=== PATIENT | female | born 1990 | race Caucasian/White ===

== ENCOUNTER 2016-09-20 08:57 | Inpatient (IN) | payer OTHER ==
[~2016-09-20] VITALS: Ht 170.2 cm; Wt 135.6 kg
[2016-09-20 10:29] LABS: Mean Corpuscular Hemoglobin 27.3 pg (27.0-35.0); Mean Corpuscular Volume 82.2 fL (81-100)
[2016-09-20 12:02] LABS: APPEARANCE,URINE HAZY (CLEAR,HAZY); COLOR,URINE YELLOW (YELLOW); PH,URINE 6.5 (5.0-8.0)
[2016-09-20 12:11] LABS: OCCULT BLOOD,URINE NEGATIVE (NEGATIVE); UROBILINOGEN,URINE NORMAL (NORMAL)
[2016-09-20] MEDS ORDERED: Lactated Ringer's 1,000 ML IV PRN (15:32)
[2016-09-20] MEDS ORDERED: Oxytocin 30 Units/500 mL LR 30 UNITS in IV Premix 1 EACH IV PRN (15:35)
[2016-09-20] MEDS ORDERED: Oxytocin 10 Unit/mL Inj IM PRN (15:35)
[2016-09-20] MEDS ORDERED: fentaNYL-PF 50 mCg/mL 2 mL Inj IVPUSH PRN (15:35)
[2016-09-20] MEDS ORDERED: Carboprost 250 mCg/mL Inj IM PRN (15:35)
[2016-09-20] MEDS ORDERED: Hemorrhage Kit, Post Partum XX ONE (15:35)
[2016-09-20] MEDS ORDERED: Sodium Chloride LOK Flush 10 mL Syringe IVFLUSH PRN (15:35)
[2016-09-20] MEDS ORDERED: Ondansetron 2 mg/mL 2 mL Inj IVPUSH PRN ×2 (15:35→22:30)
[2016-09-20] MEDS ORDERED: Methylergonovine 0.2 mg/mL Inj IM PRN (15:35)
[2016-09-20] MEDS ORDERED: Penicillin G K 5,000,000 UNITS/100 ML D5W IV ONE ×2 (16:55)
[2016-09-20] MEDS ORDERED: Oxytocin 30 Units/500 mL LR 30 UNITS in IV Premix 1 EACH IV ONE (17:20)
[2016-09-20] MEDS ORDERED: DEXTROSE 5% IV SCH (20:30)
[2016-09-20] MEDS ORDERED: PENICILLIN K IV SCH (20:30)
[2016-09-20] MEDS ORDERED: hydrALAZINE 20 mg/mL Inj ONE (20:50)
[2016-09-20] MEDS ORDERED: hydrALAZINE 20 mg/mL Inj IV ONE (20:55)
[2016-09-20] MEDS ORDERED: Magnesium Sulf 4 Gm/100 mL H2O 4 GM in IV Premix 1 EACH IV SCH (22:15)
[2016-09-20] MEDS ORDERED: fentaNYL 2 mCg/mL-Bupivicaine 0.125% 100 mL Premix EPIDURAL ONE (22:23)
[2016-09-20] MEDS ORDERED: Lactated Ringer's 500 ML IV ONE (22:26)
--- NOTE | 2016-09-20 22:29 | PCM.HPANE ---
Patient Data Surgeon Admitting Provider:Fredis Schumacher MD Attending Provider:Fredis Schumacher MD Primary Care Physician:Yolis Other Provider:Nahun Vera Anesthesia Reason for Visit NST INDUCTION Ht/WT & BMI Body Mass Index Allergies Coded Allergies: No Known Allergies (Unverified , 09/20/16) Past Anesthesia History Anesthesia History: Denies:: Abnormal Airway, Anesthesia Reactions, Difficult Intubation, Fam Anesthesia Reaction, Fam Malignant Hypertherm, Malignant Hyperthermia Diabetes History Hx Diabetes?: No Medications Hypertension Medication: Yes Home Meds Incl Beta Massiel: No History History of ENT Problems?: No HEENT History: Denies:: Abnormal Airway Cataracts Difficult Intubation Dysphagia Glaucoma Hearing Problem Sinus Problem TMJ Denture Type: None Teeth Condition: Broken Teeth Hx of Heart Problems?: Yes Cardiovascular History: Positive for:: Hypertension Denies:: AICD Abdominal Aortic Aneurism Atrial Fibrillation Cardiac Surgery Chest Pain Congestive Heart Failure Coronary Artery Disease Edema Heart Murmur Irregular Heartbeat Pacemaker Peripheral Vascular Rheumatic Fever Thrombophlebitis Valvular Heart Disease Hx of Respiratory Problem?: No Respiratory History: Denies:: Asthma COPD Chest Surgery Cough Dyspnea Emphysema Hemoptysis Oxygen Administration Pneumonia Pulmonary Embolism Tuberculosis Use of C-PAP Machine Use of Inhalers / NEBS Hx Neurologic Problems?: No Hx of GI Problems?: Yes Gastrointestinal History: Positive for:: Heartburn Hx of Problems?: No Female Hx: Positive for:: Currently Hx Musculoskeletal Problems?: No Hx Surgeries?: No Smoking Status: Never Smoker Stop/Bang Treated for Sleep Apnea?: No Do You Have a CPAP Machine?: No B- Body Mass Index > 35 kg/m2: Yes A- Age over 50: No N- Neck Large Circumference: No G- Gender Male: No BELRTAN Risk Assessment: Low Risk, <3 Yes Risk Assessment Category Category 1A: Patient has history of documented sleep apnea, and HAS NOT received any narcotic, sedative or anesthesia administration during this stay. Category 1B: Patient has history of documented sleep apnea, and HAS received any narcotic , sedative or anesthesia administration during this stay Category 2: Patient has SUSPECTED Obstructive Sleep Apnea, and HAS received any narcotic , sedative or anesthesia administration during this stay. Category 3: Patient has SUSPECTED Obstructive Sleep Apnea and HAS NOT received narcotic, sedative or anesthesia administration during this stay. Category 4: Outpatient in Procedural Areas with known sleep apnea or who screen positive for High Risk via the STOP/BANG questionnaire. Exam Exam General Appearance: Oriented X3 HEENT/AIRWAY: MP 3 Lungs: Normal Air Movement Heart: Regular Rate/Rhythm Meds/Labs/Diagnostics Admission Meds Current Medications Penicillin G Potassium 9647687 units/Dextrose/ Water 100 ml @ 100 mls/hr ONCE ONCE IV Last administered on 09/20/16 18:00; Start 09/20/16 at 16:55; Stop at 17:54; Status DC Oxytocin/Lactated Ringer's/Premix (Pitocin 30 Units/500 mL LR/ IV Premix) 500 ml @ 0 mls/hr ONCE ONCE IV Last administered on 09/20/16 17:39; Start 09/20/16 at 17:20; Stop 09/20/16 at 17:21; Status DC Labs Test 09/20/16 10:20 09/20/16 11:14 White Blood Count 9.6th/mm3 (3.8-10.1) Red Blood Count 4.11mil/mm3 (3.90-5.20) Hemoglobin 11.2g/dL (12.0-15.6) Hematocrit 33.8% (35.0-46.0) Mean Corpuscular Volume 82.2fL (81-100) Mean Corpuscular Hemoglobin 27.3pg (27.0-35.0) Mean Corpuscular Hemoglobin Concent 33.1% (32.0-37.0) Red Cell Distribution Width 14.2% (12.3-15.4) Platelet Count 363bil/L (150-400) Hematology Comments Urine Color Yellow (YELLOW) Urine Appearance Hazy (CLEAR,HAZY) Urine pH 6.5 (5.0-8.0) Urine Specific [place] 1.020 (1.003-1.035) Urine Protein 100mg/dL (NEG,TRACE) Urine Glucose (UA) Negativemg/dL (NEGATIVE) Urine Ketones Negativemg/dL (NEGATIVE) Urine Occult Blood Negative (NEGATIVE) Urine Nitrite Negative (NEGATIVE) Urine Bilirubin Negative (NEGATIVE) Urine Urobilinogen Normalmg/dL (NORMAL) Urine Leukocyte Esterase Negative (NEGATIVE) Urine RBC 0-2/hpf (0-2) Urine WBC 0-5/hpf (0-5) Urine Epithelial Cells Moderate/hpf (NONE-MOD) Urine Crystals None seen (NONE SEEN) Urine Bacteria Moderate/hpf (NONE-FEW) Urine Hyaline Casts None/lpf (NONE) Urine Granular Casts None seen (NONE SEEN) Urine Waxy Casts None seen (NONE SEEN) Urine Red Blood Cell Casts None seen (NONE SEEN) Urine White Blood Cell Casts None seen (NONE SEEN) Urine Mucus None seen (None Seen) Urine Trichomonas None seen (NONE SEEN) Urine Yeast None (NONE SEEN) Urinalysis Comment None Urine Culture Reflexed Indicated Urine Random Creatinine 243mg/dL (16-392) Urine Random Total Protein 158mg/dL (0-15) Urine Protein/Creatinine Ratio 0.65 (0-200) Blood Urea Nitrogen 11mg/dL (6-20) Creatinine 0.69mg/dL (0.57-1.00) Uric Acid 5.5mg/dL (2.6-7.2) Aspartate Amino Transf (AST/SGOT) 14U/L (0-50) Alanine Aminotransferase (ALT/SGPT) 12U/L (0-32) Hold Urine Received (Received) Plan Impression Patient chart reviewed, patient interviewed and anesthestic plan with risks, benefits, and alternatives discussed, and informed consent obtained. ASA Physical Status: ASA3 Severe Disease Anesthetic Plan: Epidural Bene/Risks/Altern/Consents: Yes HP Complete Prior to Induction: Yes Douglas Cochran MD Sep 20, 2016 22:29
[2016-09-20] MEDS ORDERED: Atropine 1 mg/10 mL (Code) Syringe IVPUSH PRN (22:30)
[2016-09-20] MEDS ORDERED: fentaNYL 2 mCg/mL-Bupiv 0.125% 100 ML EPIDURAL SCH (22:30)
[2016-09-20] MEDS ORDERED: Phenylephrine/NS-PF 100 mCg/mL 5 mL Syringe IVPUSH PRN (22:30)
[2016-09-20] MEDS ORDERED: EPHEDrine Sulfate 50 mg/mL Inj IVPUSH PRN (22:30)
[2016-09-20] MEDS: Lactated Ringer's 1,000 ML IV SCH (22:56)
[2016-09-20] MEDS: Magnesium Sulf 20 Gm/500mL H2O 20 GM in IV Premix 1 EACH IV SCH (23:44)
[2016-09-20] MEDS: Penicillin G K Inj 3,000,000 UNITS in IV Premix 1 EACH IV SCH (23:45)
[2016-09-21] MEDS: Sodium Chloride LOK Flush 10 mL Syringe IVFLUSH SCH ×2 (00:30→08:30)
[2016-09-21] MEDS: Penicillin G K Inj 3,000,000 UNITS in IV Premix 1 EACH IV SCH ×6 (03:39→20:30)
--- NOTE | 2016-09-21 06:48 | PROG NOTE ---
[address] [address] PROGRESS NOTE PATIENT: JO GROVER : 1990 MR#: [id number] ADMIT: 09/20/2016 JOB ID: [id number] DATE: [facility] NOTE: The patient was admitted to [facility] yesterday for labor induction at 36 and 1 to 2/7 weeks gestation with progressive preeclampsia, approaching, if not truly having reached severe. Diastolic blood pressure reached 117 and has been labile, progressively increasing during the last week. Urine protein has increased from 0-1+ to 2+ during the past few weeks, and there has been very significant edema including nearly 10 pound weight gain over a couple of weeks as recently noted. Preeclampsia blood work has been okay. The patient was initiated on Pitocin therapy when cervix was in the 1.5 to 2 cm range, and cervix was gradually progressed up to about 4.5 cm dilatation at last check, 90% effaced. Labor pattern has been reasonable for the most part with Pitocin and intrauterine pressure catheter. Nurse placed a scalp electrode to facilitate monitoring, with the most recent assessment category one. Urine output has been fine and blood pressures have been elevated, not infrequently in the 160s over 90s plus/minus, and in the last hour in the 150s over 90s. If recurrent elevations in the 160s or higher systolic or high 90s or higher diastolic, we will likely give labetalol, beginning at 20 mg IV with graduating doses thereafter until stabilized readings in the lower range. The pharmacometrician has been notified of the patient's induction. Note that the patient does have epidural, and magnesium sulfate therapy is on board. IMPRESSION: 1. Thirty six plus weeks gestation. 2. Preeclampsia, suspect severe primarily from a hypertension standpoint, also however with progressive proteinuria and fluid retention/edema. 3. Positive group B strep status, undergoing antibiotic prophylaxis. 4. Morbid obesity. 5. See record for additional and other notes for additional diagnoses. PLAN: 1. Continue Pitocin therapy, attempt to optimize uterine contraction pattern. 2. Intrauterine pressure catheter (IUPC) and electrocardiogram (FECG) in place. 3. Epidural in place. 4. Magnesium sulfate therapy on board at 2 grams per hour, tracking reflexes, respirations and urine output. 5. Tracking blood pressure, for initiation of intravenous labetalol in graduating doses to desired effect if blood pressures return to greater than or equal to 160 systolic or high 90s or 100s diastolic. 6. Product Accountant aware of labor.
[2016-09-21] MEDS ORDERED: Labetalol 5 mg/mL 20 mL Inj IV ONE ×2 (07:45→11:20)
[2016-09-21] MEDS: Lactated Ringer's 1,000 ML IV SCH ×4 (07:58→20:04)
[2016-09-21] MEDS: Magnesium Sulf 20 Gm/500mL H2O 20 GM in IV Premix 1 EACH IV SCH ×2 (08:48→18:48)
[2016-09-21] MEDS ORDERED: Oxytocin 30 Units/500 mL LR Premix IV ONE (12:00)
[2016-09-21] MEDS ORDERED: Oxytocin 10 Unit/mL Inj IM PRN (12:05)
[2016-09-21] MEDS ORDERED: TdaP Vaccine 0.5 mL Inj IM ONE (12:05)
[2016-09-21] MEDS ORDERED: Magnesium Sulf 2 Gm/50mL Water 2 GM in IV Premix 1 EACH IV SCH (12:05)
[2016-09-21] MEDS ORDERED: Carboprost 250 mCg/mL Inj IM PRN (12:05)
[2016-09-21] MEDS ORDERED: LANOlin HPA 7 Gm Ointment TOPICAL PRN (12:05)
[2016-09-21] MEDS ORDERED: Benzocaine (Dermoplast) 20% 60 Gm Spray TOPICAL PRN (12:05)
[2016-09-21] MEDS ORDERED: Hemorrhage Kit, Post Partum XX ONE (12:05)
[2016-09-21] MEDS ORDERED: Influenza (Adult) Vaccine 0.5 mL Syringe IM ONE (12:05)
[2016-09-21] MEDS ORDERED: Oxytocin 30 Units/500 mL LR 30 UNITS in IV Premix 1 EACH IV PRN (12:05)
[2016-09-21] MEDS ORDERED: Measles-Mumps-Rubella Vaccine 0.5 mL Inj SUBQ ONE (12:05)
[2016-09-21] MEDS ORDERED: Methylergonovine 0.2 mg/mL Inj IM PRN (12:05)
[2016-09-21] MEDS ORDERED: HYDROcodone-APAP 5-325 mg Tablet PO PRN (12:05)
[2016-09-21] MEDS ORDERED: Witch Hazel-Glycerin Pads TOPICAL PRN (12:05)
[2016-09-22] MEDS: Penicillin G K Inj 3,000,000 UNITS in IV Premix 1 EACH IV SCH (00:30)
[2016-09-22] MEDS: Lactated Ringer's 1,000 ML IV SCH ×3 (04:04→20:04)
[2016-09-22] MEDS: Magnesium Sulf 20 Gm/500mL H2O 20 GM in IV Premix 1 EACH IV SCH (05:10)
[2016-09-22 06:28] LABS: Mean Corpuscular Hemoglobin 27.4 pg (27.0-35.0); Mean Corpuscular Volume 82.6 fL (81-100)
--- NOTE | 2016-09-22 07:12 | HP ---
[address] [address] HISTORY AND PHYSICAL PATIENT: JO GROVER : 1990 MR#: [id number] ADMIT: 09/20/2016 JOB ID: [id number] [facility] NOTE: DATE: 09/20/2016, 1500 hours. HISTORY: The patient has been followed prenatally in my office, see record for details. She has reached 36 weeks and a day or two. She has recently been found to have increasing blood pressures and increasing proteinuria and very significant edema and weight retention. Preeclampsia has been suspected; although, felt to be mild last week and patient was put at bed rest. However, today diastolic blood pressure has risen overall, and even intermittently has exceeded 110. Proteinuria has increased over time from 0 to +1 to now +2. It is felt that the patient is approaching if not having actually and probably reached severe preeclampsia and decision has been made to not delay until patient and baby are more ill, but rather to proceed with induction. The patient and her have understood risks of early induction at 36+ weeks of gestation; although, also realizing the importance in light of preeclampsia and especially the hypertension as described. We have discussed induction process and that it can take some time. The maneuvers were used to bring on labor, the measures we use for comfort, and the importance of tracking blood pressure and other parameters closely, etc. All questions have been answered, and informed consent was signed for induction. In summary, then, the patient was admitted to [facility] on September 20, 2016, for labor induction at 36+ weeks of gestation in the setting of progressive preeclampsia, probably severe at this point in time. PHYSICAL EXAMINATION: BMI 47-48. Blood pressures labile, as high as 117 diastolic, see hospital record for many blood pressure readings. Neck: No thyromegaly. Lungs: Auscultation and percussion. Heart: Regular in rate and rhythm. Abdomen: Increased abdominal wall thickness. Fundus palpable. Positive heartbeat. No right upper quadrant or epigastric tenderness. Cervical exam initially 1-1/2 to 2 cm, 70% effaced, and -3 station. IMPRESSION: 1. A 36 plus weeks gestation. 2. Preeclampsia, progressive, suspect severe, primarily on the basis of hypertension; although, proteinuria and significant edema/fluid retention are also present, and patient has had intermittent headache and intermittent visual disturbances. 3. Morbid obesity. 4. Positive group B Streptococcus status. 5. See records and other notes for additional diagnoses. PLAN: 1. The patient was admitted to [facility] on September 20, 2016, on which day labor induction will be initiated in the setting of preeclampsia. Pitocin therapy is the plan, and to closely monitor blood pressure and provide antihypertensive medication if needed, to likely provide epidural for pain management, and to likely initiate magnesium sulfate therapy as labor intensifies. 2. We will consider artificial rupture of membranes when possible and place intrauterine pressure catheter. 3. Penicillin G will be provided for antibiotic prophylaxis in light of group B Strep status.
[2016-09-22] MEDS: Sodium Chloride LOK Flush 10 mL Syringe IVFLUSH SCH (16:30)
[2016-09-23] MEDS: Sodium Chloride LOK Flush 10 mL Syringe IVFLUSH SCH ×3 (00:30→16:30)
[2016-09-23] MEDS: Lactated Ringer's 1,000 ML IV SCH ×3 (04:04→20:04)
[2016-09-23] MEDS ORDERED: Labetalol 5 mg/mL 20 mL Inj IV ONE (06:30)
[2016-09-23 06:51] LABS: Mean Corpuscular Hemoglobin 27.3 pg (27.0-35.0)
--- NOTE | 2016-09-23 08:26 | PROG NOTE ---
[address] [address] PROGRESS NOTE PATIENT: JO GROVER : 1990 MR#: [id number] ADMIT: 09/20/2016 JOB ID: [id number] DATE: 09/22/2016 The patient was admitted to [facility] on September 20, 2016 with progressive preeclampsia, suspected severe at 36 weeks of gestation. Labor was induced and she ultimately underwent vaginal delivery on September 22, 2016. Note that blood pressure was the major issue, she did require some intravenous labetalol and also was given oral labetalol in followup at 100 mg p.o. b.i.d. during the timeframe. This will be continued for a time . Note that general symptoms have notably improved with resolution of headache, pain behind her eyes, blurry vision, etc., after delivery and with improvement in blood pressure and ultimately with cessation of magnesium sulfate earlier on September 22, 2016. Otherwise, she was ambulating, voiding, bleeding has been fine, she has handled the baby well, she has not had leg pain or shortness of breath, etc. hemoglobin was acceptable. DATE: PLAN: Continue the patient's hospitalization into September 23, 2016, day number two, in light of the rather significant preeclampsia before. Will continue to track blood pressure closely and adjust blood pressure medications as needed. Anticipating discharge to home on September 23, 2016 or at least to boarder status if baby needs to continue to stay states since a little bit early.
[2016-09-23] MEDS ORDERED: hydrALAZINE 20 mg/mL Inj ONE (09:13)
[2016-09-24] MEDS: Sodium Chloride LOK Flush 10 mL Syringe IVFLUSH SCH ×5 (00:30→16:30)
[2016-09-24] MEDS: Lactated Ringer's 1,000 ML IV SCH ×3 (04:04→20:04)
--- NOTE | 2016-09-24 05:39 | PROG NOTE ---
[address] [address] PROGRESS NOTE PATIENT: JO GROVER : 1990 MR#: [id number] ADMIT: 09/20/2016 JOB ID: [id number] [facility] NOTE: DATE: 09/23/2016, at 1900 hours SUBJECTIVE: Underwent labor induction leading to vaginal delivery in the setting of a 36-week with severe preeclampsia; delivery on September 21, 2016. The patient had received magnesium sulfate therapy during labor, as well as given for 24 hours . Blood pressures remained labile, and ultimately, labetalol 100 mg twice daily was initiated. Although there was improvement, and consideration for discharge even on the first day, i.e. on September 22, 2016, some significant blood pressure elevations subsequently occurred, and decision was made to keep the patient hospitalized the second day, and labetalol dose was increased to 200 mg p.o. b.i.d., beginning the morning of September 23, 2016. The patient's blood pressure lability intermittently continued, and the decision was then made once again, in the evening of the second day, i.e. September 23, 2016, to keep the patient overnight with continued blood pressure monitoring with medication response as needed. In discussing with the patient, she was very disappointed that she could not go home. She understood the importance of close surveillance, however. Her indicates that it seems to be at times of stress and tension when blood pressure is more notable; sometimes when up and around, sometimes when company is in the room, and also when worried about something, such as baby spitting up. Otherwise, the patient is doing well from a bleeding standpoint, ambulation, voiding, without leg pain or shortness of breath, etc. Note that repeat preeclampsia lab work was acceptable as well during the timeframe, obtained to ensure no laboratory evidence for preeclampsia flare up in light of labile hypertension. IMPRESSION: Labile hypertension during the timeframe as part of preeclampsia picture; using increasing doses of oral labetalol and intravenous medications at times, including labetalol and hydralazine. PLAN: Continuing hospitalization for consideration of additional antihypertensive agents if needed.
[2016-09-24] MEDS ORDERED: Labetalol 5 mg/mL 4 mL Inj ONE (07:56)
[2016-09-24] MEDS ORDERED: Labetalol 5 mg/mL 20 mL Inj IV ONE (08:05)
--- NOTE | 2016-09-24 10:24 | PCM.CHPMED ---
Subjective Date of Service: Sep 24, 2016 Primary Physician: Admitting Physician: Fredis Schumacher MD Primary Care Physician: [place] Attending Physician: Fredis Schumacher MD Chief Complaint: Chief Complaint: Hypertension, History of Present Illness: 26-year-old female primigravida, day3 vaginal delivery 09/22, suspected Preeclampsia, morbid obesity Hospitalist service was consulted for blood pressure management in the setting of possible preeclampsia. pt was never diagnosed with hypertension in the past. However, during the labor course, pt was note to have elevated blood pressure, progressive proteinuria and generalized fluid retention/edema. therefore preeclampsia was suspected as per . pt had episodic hypotension up to 180-190s, required Labetalol 200mg bid started and this AM was 190/90, also labetalol 20mg iv given additional.BP subsequently decreased to 150s in 1hours. pt also started on Mg4g iv since 09/20 and abx ppx with PCN G for group B strep. Labs were notable in UA for microproteinurina, normal renal function, plt count , LFTs. h/h remained stable. As per , bleeding was controlled. pt was voiding, ambulating okay. During the interview, pt denied any headache, blurry vision, nausea, vomiting, dizziness, abdominal pain, difficulty breathing or cough, dysuria or fever, chills, photophobia, phonophobia. pt denied having any issues with HTN in the past. however stated that her mother had HTN when she was in the past. pt stated that she had more body swelling but now it's resolving, denied orthopnea, PND Review of Systems: Pertinent positives as noted in history of present illness. All other systems were reviewed and are negative PMH Past Medical History PMH n/a PSH appendectomy allergy none SH no toxic habits Allergies: Coded Allergies: No Known Allergies (Unverified , 09/20/16) Social History Smoking Status: Never Smoker Exam Additional Information: NAD, comfortably laying down on the bed no JVD, MMM, no LAD RRR, nl s1, s2 no mrg CTAB, no w,c S,ND,NT,normoactive BS+ warm, no edema, pulses 2/2 Lab and Diagnostics Result Diagram: 09/23/1635 09/23/16 0635 Assessment & Plan Assessment impression> Suspected Preeclampsia given proteinuria, generalized edema, new onset HTN. BP rather became elevated after delivery. Pt is on Mg, responded well to labetalol w/o adverse effect. Exam and labs were not concerning fo ecclamsia or HEELP or any end organ damages. Currently pt is asymptomatic and blood pressure trend is better. -Please consider increase labetalol 200mg bid to 300mg bid, titrate up to 300mg tid if remains uncontrolled. uses labetalol 20mg iv q6h as tolerated. BP target should be goal <140/90 as in general population upon d/c -Please arranged outpatient follow up with Singing Waiter Or Waitress as well after discharge, Patient currently doesn't have PCP. -monitor symptoms and signs of endorgan damages, pt is already on #3, labs are stable, don't expect to deteriorate Thank you Dr. Schumacher for allowing me to assess patient, hospitalist service will continue to follow Please feel free to contact hospitalist service, should you have questions. P [phone] Juliana Ivan Problems: Juliana Ivan MD Sep 24, 2016 10:24
[2016-09-24] MEDS: Labetalol 5 mg/mL 20 mL Inj IVPUSH PRN (16:22)
[2016-09-24] MEDS ORDERED: hydrALAZINE 20 mg/mL Inj IV ONE (19:00)
--- NOTE | 2016-09-24 19:36 | PROG NOTE ---
[address] [address] PROGRESS NOTE PATIENT: JO GROVER : 1990 MR#: [id number] ADMIT: 09/20/2016 JOB ID: [id number] [facility] NOTE: DATE: 09/24/2016 TIME OF NOTE: 1800 hour SUBJECTIVE: The patient underwent vaginal delivery on September 21, 2016, induced in the setting of severe preeclampsia. During the timeframe, she received magnesium sulfate therapy initially for about 24 hours, and labetalol was initiated at 100 mg twice daily to help with blood pressure and then increased to 200 mg twice daily. Repeat preeclampsia labs have been fine, yet blood pressures have continued to be an issue. Blood pressures around 3 and 4 a.m. were in the 115-130/58-84 range. However, then blood pressure candy consistent with very significant lability that we have witnessed, to as high as 178/99 at 0600 hour. Subsequently dropped down to 120/88 and 138/92, yet then back up to 190/103 and 185/102 around the 8 o'clock hour this morning. She was given labetalol 20 mg IV push over 2 minutes, and 200 mg dose of oral labetalol was given. I also called Internal Medicine hospitalist, triage doc who listened to the clinical course of the patient and was agreeable to have Internal Medicine hospitalist come check on her by mid morning and to assume management of her blood pressure elevations/lability. Patient otherwise has been stable. wine specialist, Dr. Cerda, indeed the patient mid morning and made the following recommendations: Increase labetalol from 200 to 300 mg p.o. b.i.d., titrate up to 300 mg p.o. t.i.d. if remains uncontrolled, and to use labetalol 20 mg IV every 6 hours as tolerated, with blood pressure target goal of less than 140/[address] I [address] Dr[address] Cerda's consultation note and in fact spoke with him as well. He indicated that he would be here each day over the weekend and would follow and manage blood pressure as indicated. I expressed my goals of certainly lower blood pressure readings and blunted lability to help prevent complications. We discussed the increasing dose of labetalol, the emergency IV labetalol when needed, and even the potential for two antihypertensive medications mentioned just in passing. Note that the patient's heart rate has generally been high enough to tolerate additional beta-rebecca. IMPRESSION: 1. day #3. 2. Status post vaginal delivery at 36 weeks of gestation. 3. Severe preeclampsia, originally managed with magnesium sulfate therapy during labor and after for 24 hours. Persistent intermittent severe blood pressure lability/severe hypertension levels are noted at times, in spite of increasing dose of labetalol. wine specialist now involved. 4. Morbid obesity. 5. See records and other notes for additional diagnoses. PLAN: 1. Continue care in the hospital. 2. I appreciate Dr. Cerda and his team's hypertension management going forward with single or dual agents, rescue intravenous dosing, and other management as appropriate. 3. Ultimately, the patient will need to follow up with primary care provider for ongoing hypertension management. It is difficult to predict how long hypertension will be an issue, expected to improve over days, weeks, and sometimes months in the setting of preeclampsia, although there also is a potential for persistent hypertension in some cases. 4. I have communicated with the nursing staff multiple times throughout the day in the setting of the significant hypertension. I have asked the nursing staff to call Dr. Cerda or his team as well when blood pressures are too high, if rescue labetalol is required to often, if patient's needs seen for high readings and overall blood pressure lability, etc.
[2016-09-25] MEDS: Sodium Chloride LOK Flush 10 mL Syringe IVFLUSH SCH ×4 (00:30→19:32)
[2016-09-25] MEDS: Lactated Ringer's 1,000 ML IV SCH ×3 (04:04→20:04)
--- NOTE | 2016-09-25 08:09 | PCM.PNMED ---
Subjective Date of Service Sep 25, 2016 Subjective Patient is seen and examined in her room. Denies chest pain, n/v, diaphoresis and dyspnea. Optimal BP control was not achieved overnight. Still very hypertensive whenever she moves/with activity. Exam Vital Signs HR 80-90 BP141/82, RR 20 Exam NAD, comfortably laying down on the bed Neck: no JVD, no tracheal deviation Heart: RRR, nl s1, s2 no murmurs Lungs: CTAB, no crackels or wheezes Abd: Non distended Ext: warm, no edema, pulses 2/2 PSych: Neg for agitation, pleasant affect IVs and Medications Medications Reviewed: Medications were reviewed in detail Medications HCTZ, Cardizem, hydroxyzine and PRN labetalol, other meds per director of mobile marketing Lab and Diagnostics Result Diagram: 09/23/1663409/23/16634 Assessment & Plan HTN, active -- Changed her to cardizem 30 mg Q6H PO, HCTZ 25 mg PO QD. -- Observed through the day without IV coverage. By evening she is able to maintain 130-140 systolic, 80-85 DBP at rest. BP still elevated with activity. -- Labetalol IV 20 mg Q6H PRN for overnight for SBP>=180 or DBP>=100. Hold if HR <65 and call MD. Status post 36-week delivery, induced, vaginal , in the setting of severe preeclampsia. -- Stable Morbid Obesity, POA chronic -- Contributing to hypertension. -- Nursing Coordinator pt on maintaining a healthy weight Anxiety, active -- Hydroxyzine 25 mg PO Q6HPRN Pain Evaluation: Adequate Pain Control Time spent 40 min spent t of which 50% time spent reviewing records, labs, vitals and discussing case with Radha Garcia DO Sep 25, 2016 07:15
[2016-09-25 09:17] LABS: Mean Corpuscular Volume 84.7 fL (81-100)
[2016-09-25] MEDS: hydrOXYzine Pamoate 25 mg Capsule PO PRN ×2 (14:12→21:34)
--- NOTE | 2016-09-25 14:20 | PROG NOTE ---
[address] [address] PROGRESS NOTE PATIENT: JO GROVER : 1990 MR#: [id number] ADMIT: 09/20/2016 JOB ID: [id number] DATE: 09/25/2016 SUBJECTIVE: The patient is day number four following vaginal delivery at 36 weeks of gestation with severe preeclampsia. Labor had been induced and baby is doing well. The patient has also improved in almost every way, feeling well, with minimal bleeding, with no worrisome or problematic cramping or stitch pain, and is now not using ibuprofen. She is voiding and ambulating, and handling baby well. Her one major problem is that of hypertension, very labile, and with significantly elevated readings reaching the 170s-180s, even into the 190s systolic at times, and with diastolics reaching 110 and above. This is in spite of her steadily increasing labetalol dosage and with management per Internal Medicine specialists, attempting to achieve quality hypertension management. I spoke with Dr. Lynn, internal medicine hospitalist, this morning who will be seeing the patient today and tomorrow and onward during her hospitalization. We discussed the fact that preeclampsia has notably improved in many ways, now with delivery, and only the residual high blood pressure remaining. Lab work has been good as checked a couple of days ago as well as this morning once again. The patient has not adequately responded to labetalol and Dr. Lynn has recommended a change in medication to a calcium channel rebecca, Diltiazem, which she has initiated this morning in addition to a diuretic. Dr. Lynn will follow the patient's blood pressure closely and implement additional treatment along the way and therapy changes as needed. She and I agree on the importance of more optimal hypertension management in an effort to avoid hypertension-related morbidities including stroke and heart problems. The patient understands these things as well and she and her are exercising patience as they are managed in the hospital in an effort to reduce blood pressure more consistently before being allowed to go home. All questions have been answered. The patient and and I appreciate Dr. Lynn being on this patient's blood pressure management team. IMPRESSION: 1. Status post 36-week delivery, induced, vaginal , in the setting of severe preeclampsia. 2. Significant intermittent hypertension and hypertension/blood pressure lability, with unsuccessful labetalol management, now under the direction of internal medicine hospitalist team and with medication changes today. 3. Morbid obesity. PLAN: Continue hospitalization. care has become relatively simple, except for the hypertension that we now have the internal medicine hospitalist primarily managing. Nursing staff continuing with nursing assistance and other care.
[2016-09-25] MEDS: Labetalol 5 mg/mL 20 mL Inj IVPUSH PRN (22:04)
[2016-09-26] MEDS: Sodium Chloride LOK Flush 10 mL Syringe IVFLUSH SCH ×3 (00:30→16:30)
[2016-09-26] MEDS: Lactated Ringer's 1,000 ML IV SCH ×3 (04:04→20:04)
[2016-09-26] MEDS: Labetalol 5 mg/mL 20 mL Inj IVPUSH PRN ×2 (09:25→09:39)
[2016-09-26] MEDS: hydrOXYzine Pamoate 25 mg Capsule PO PRN (09:39)
--- NOTE | 2016-09-26 12:22 | DRSVH ---
[facility] [address] [place] [address] Echocardiogram Report Name: JO GROVER JStudy Date: 09/26/2016 Height: 67 in Hospital Exam Location: [facility] Weight: 299 lb Gender: Female BSA: 2.4 m2 : 1990 Age: 26 yrs BP: 150/95 mmHg Reason For Study: Hypertension Ordering Physician: HOSPITALIST [facility] Performed By: Gissel Walter Referring Physician: Dr. Fredis Schumacher Interpretation Summary 1) Normal left ventricular thickness, size, wall motion, and systolic function (EF 60-65%). 2) Normal right ventricular size and function. 3) No significant valvular abnormalities. 4) No prior Echo available for comparison. Procedure: A two-dimensional transthoracic echocardiogram with color flow and Doppler was performed. The study quality was technically adequate. There is no prior echocardiogram noted for this patient. The patient was in normal sinus rhythm during the exam. Left Ventricle: The left ventricle is normal in size, wall thickness, and systolic function without any focal wall motion abnormalities. The ejection fraction is estimated to be 60-65%. Assessment of diastolic parameters indicates normal left ventricular diastolic function and normal filling pressures. Right Ventricle: The right ventricle is normal in size, thickness and function. Atria: The left atrial size is normal. Right atrial size is normal. The interatrial septum is intact with no evidence for an atrial septal defect. Mitral Valve: The mitral valve is normal in structure and function. There is no mitral regurgitation noted. Aortic Valve: The aortic valve is trileaflet. The aortic valve opens well. No aortic regurgitation is present. Tricuspid Valve: The tricuspid valve is normal in structure and function. No tricuspid regurgitation. Pulmonic Valve: The pulmonic valve is normal in structure and function. There is no pulmonic valvular regurgitation. Great Vessels: The aortic root is normal size. The ascending aorta is at the upper limits of normal in size. The IVC is of normal diameter and collapses greater than 50% with a sniff. This suggests a low right atrial pressure of 3 mm Hg. Pericardium/ Pleura There is no pericardial effusion. There is no pleural effusion. MMode/2D Measurements & Calculations LVIDd: 5.1 cm LA dimension: 3.6 cm RA long axis Ao root diam LVIDs: 3.4 cm FS: 34.3 % LA A2 area: 18.9 cm RA area Aortic Jxn IVSd: 1.0 cm LA A4 area: 21.4 cm LVPWd: 0.95 cm LA length (vol): 5.2 cm : 12.5 cm asc Aorta LA vol: 66.9 ml RA vol: 27.5 mlDiam: 3.4 cm LA vol index RA : 11.5 mm/ : 27.9 ml/m2 RVDd major : 5.6 cm LV pederson. diameter/BSA LV sys. diameter/BSA RVD1 (basal) RVD2 (mid) (cm/m^2): 2.1 (cm/m^2): 1.4 : 2.1 cm Doppler Measurements & Calculations LVOT Max Jayant MV E max jayatn MV E/A: 1.2 PA V2 max : 176.8 cm/sec : 80.4 cm/sec : 140.6 cm/sec MV A max jayant PA mean PG : 64.6 cm/sec MV P1/2t: 49.5 msec PA Accel Time : 0.12 sec MV dec time MV P1/2t max jayant LV V1 max PG PA V2 mean : 0.16 sec : 86.4 cm/sec MVA(P1/2t): 4.4 cm2 LV V1 VTI : 30.4 cm Reading Physician:12:22 PM
[2016-09-26 19:46] VITALS: BP 166/102
--- NOTE | 2016-09-26 20:25 | PROG NOTE ---
[address] [address] PROGRESS NOTE PATIENT: JO GROVER : 1990 MR#: [id number] ADMIT: 09/20/2016 JOB ID: [id number] DATE: 09/26/2016 PROGRESS NOTE: This is a 26-year-old female. She is 36 weeks for induction for preeclampsia and delivered September 22. She got magnesium management for preeclampsia. She has no symptoms of headache, blurry vision, epigastric pain, or any other discomfort. , her blood pressure is still elevated. She started labetalol after delivery. Blood pressure was not well controlled and on September 25 the internal medicine physician was consulted and labetalol p.o. was stopped and she was placed on diltiazem and hydrochlorothiazide. Yesterday dosage for diltiazem was 30 mg and hydrochlorothiazide was increased to 25 mg. This is a patient of Dr. Fredis Schumacher and I am covering for for today. I saw the patient this morning. She has no complaint of discomfort, no headache, no blurry vision, no epigastric pain. She tolerated her diet well, voiding well and ambulating well. She declined any other medical problems. She declined any previously diagnosed hypertension, although she had elevated blood pressure in early . Declined other problems. PHYSICAL EXAMINATION: She is afebrile. Blood pressure labile. Blood pressure measured from her left arm and right arm mostly different, mostly has at least a 20 difference by reading. Her abdomen is soft, nontender. Extremities nontender. No significant edema. LABORATORIES: Her H and H today is 9.9 over 31.7, her platelet count was 423. Her BUN 10 and creatinine 0.6. acid 6.3. AST and ALT 26 over 32. There is echo ordered by internal medicine physician and showed normal findings. ASSESSMENT AND PLAN: A 26-year-old female four days after vaginal delivery, severe preeclampsia, status post magnesium management, blood pressure not well controlled. At this time, internal medicine is helping controlling her blood pressure. I talked with Dr. Lynn this morning that she increase the diltiazem from 30 mg to 60 mg. she will keep hydrochlorothiazide 25 mg and keep measuring blood pressure only on one arm and today the blood pressure was checked only right arm, which is usually her high measurement arm. This morning before medication was given it was high to 180-200/1110s. After medication given, systolic stable at 160 and diastolic stable lower than 100. The patient still has no symptoms. I discussed with nurse Haley and Dr. Lynn saw felt patient in afternoon and the plan is we will continue monitoring her blood pressure at this time, we will consider add labetalol if blood pressure is still not well controlled tomorrow. I will follow Dr. Lynn' plan at this time. Continue to monitor patient's symptoms and signs of preeclampsia.
[2016-09-26 22:01] VITALS: BP 146/90
--- NOTE | 2016-09-26 22:16 | PCM.PNMED ---
Subjective Date of Service Sep 26, 2016 Subjective Patient is seen and examined. She denies chest pain, dyspnea, diaphoresis. Leg edema has improved. Exam Vital Signs Lastly blood pressure is 160/94 and 160/82 and 160/74. Patient's heart rate is tolerating labetalol 70s to 80s. Respirations 20 oxygen sats= full oxygenation at room air Exam Gen.: No acute distress playing with her daughter HEENT: Normocephalic, atraumatic Heart: Regular rate and rhythmfor sounds Neck: Trachea central no JVD Lungs: Clear to auscultation or wheezes Abdomen: Nontender, nondistended normal bowel sounds Extremities: Mild edema is present IVs and Medications Medications Reviewed: Medications were reviewed in detail Lab and Diagnostics Result Diagram: 09/25/1682209/25/16822 Assessment & Plan HTN, active -- Changed her to cardizem 30 mg Q6H PO, HCTZ 25 mg PO QD. -- Observed through the day without IV coverage. By evening she is able to maintain 130-140 systolic, 80-85 DBP at rest. BP still elevated with activity. Patient required 1 dose of labetalol overnight, and another during 10/13 and daytime. -- Labetalol IV 20 mg Q6H PRN for overnight for SBP>=180 or DBP>=100. Hold if HR <65 and call MD. -- Change Cardizem to 60 mg every 6 hours by mouth 09/26 -- Her last 3 readings prior to the end of my shift were 160/90 range. -- We will plan to add a third agent in the a.m. if control is not achieved. -- Ultrasound echo was ordered this morning, to check for chronic hypertensive changes such as left ventricular hypertrophy. It was normal Status post 36-week delivery, induced, vaginal , in the setting of severe preeclampsia. -- Stable Morbid Obesity, POA chronic -- Contributing to hypertension. 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
[2016-09-27] VITALS (14 sets, daily range): BP systolic 118–165; BP diastolic 78–100; PULSE 90–98; RESP 18–19
[2016-09-27] MEDS: Sodium Chloride LOK Flush 10 mL Syringe IVFLUSH SCH (00:30)
[2016-09-27] MEDS: Lactated Ringer's 1,000 ML IV SCH (04:04)
--- NOTE | 2016-09-27 07:56 | PROG NOTE ---
[address] [address] PROGRESS NOTE PATIENT: JO GROVER : 1990 MR#: [id number] ADMIT: 09/20/2016 JOB ID: [id number] DATE: 09/21/2016 [facility] NOTE: The patient was admitted to [facility] the afternoon of September 20, 2016 with severe preeclampsia at 36+ weeks of gestation. Labor induction efforts were initiated and ultimately effective labor was achieved and cervix dilated and ultimately reached 10 cm. Note that epidural was provided for pain management, magnesium sulfate therapy was initiated for stabilization and prophylaxis against seizures in the setting of a severe preeclampsia, and penicillin G was provided for antibiotic prophylaxis in the setting of group B strep test positivity. Note that blood pressures have been closely followed with appropriate measures undertaken when elevated. Once completely dilated, patient learned to push well, and steadily brought down the head down to position. Head then delivered, followed directly by the shoulders, body, and extremities. The baby was active and crying upon delivery. She was handed to mother for bonding and further nurse management. Baby was dried and stimulated. After 1 minute of delay, umbilical cord was clamped and cut. Cord blood was obtained for routine studies and placenta with membranes ultimately were expelled, intact. Uterus contracted well with massage plus intravenous Pitocin infusion. Bleeding was not excessive. Betadine solution was used to cleanse the vulvovaginal lesion. Inspection revealed only small and shallow second-degree right inner labial laceration, easily repaired with 3-0 chromic suture in a running manner. Hemostasis was then noted to be complete at that site, without any hematoma formation. Procedures were thus complete, and note that instrument, needle, and sponge counts all found to be correct. Bleeding was minimal at this point from the uterus. It certainly is anticipated that mother and baby will do well during the timeframe. Linux Support Engineer will closely follow baby due to prematurity. We will follow various parameters including blood pressure and urine output in light of severe preeclampsia. Anticipate that blood pressure will improve , although we will provide antihypertensive medications as needed. Magnesium sulfate therapy also should be continued for 24 hours following delivery.
--- NOTE | 2016-09-27 17:17 | PCM.PNOBPP ---
Subjective Date of Service Sep 27, 2016 Subjective Denies headache, change in vision, N/V or epigastric pain Lochia: Normal Gastrointestinal: Good Appetite, No N/V Postop Activity: Ambulate without Assist Labs Laboratory Tests 09/25/16 08:23: White Blood Count 9.0, Red Blood Count 3.67, Hemoglobin 9.9, Hematocrit 31.1, Mean Corpuscular Volume 84.7, Mean Corpuscular Hemoglobin 27.0, Mean Corpuscular Hemoglobin Concent 31.8, Red Cell Distribution Width 15.1, Platelet Count 423, Hematology Comments Exam Vital Signs Vital Signs Vital Signs Date Time Temp Pulse Resp B/P Pulse Ox O2 Delivery O2 Flow Rate FiO2 09/27/16 17:02 160/82 09/27/16 17:01 165/84 09/27/16 15:00 90 18 155/84 09/27/16 15:00 36.4 90 140/78 09/27/16 11:49 90 19 145/100 09/27/16 11:49 90 150/94 Vital Signs: VS reviewed, concerns are Exam Abdomen: Fundus firm, Abdomen non-tender Extremities: Edema 2+ General: Alert, Oriented X3 OB Post Assessment/Plan Assessment 26 Y 1. PPD#6 (S/P 09/21/16) appropriate recovery. 2. Preeclampsia with sever features Blood pressure management by is greatly appreciated. Blood pressure is better controlled today but still have readings in severe range Current Medications Diltiazem HCl 60 mg Q6H PO Hydrochlorothiazide 25 mg DAILY PO Labetalol HCl 20 mg Q6H PRN IVPUSH Last administered on 09/26/16t 09:39; Admin Dose 20 MG; Start 09/25/16 at 19:30 2. Anxiety: Hydroxyzine 25 mg PO Q 6 hours. Anticipate discharge home tomorrow if BP continue to trend down and patient remained asymptomatic. Pain Evaluation: Adequate Pain Control Plan: Angela Simon MD Sep 27, 2016 17:17
[2016-09-27] MEDS: hydrOXYzine Pamoate 25 mg Capsule PO PRN (18:23)
--- NOTE | 2016-09-27 19:37 | DRSVH ---
PROCEDURE: US DUPLEX DOPPLER OF BILATERAL ARM ARTERIES ([id number]) INDICATIONS: difference in BP R vs L TECHNIQUE: Color and pulse Doppler interrogation was performed of right and left upper extremities arterial syst ems, with image documentation. COMPARISON: None. FINDINGS: Right upper extremity: Subclavian artery (mid): 118 cm/sec, with triphasic flow. Axillary artery: 106 cm/sec, with triphasic flow. Brachial artery (proximal): 168 cm/sec, with triphasic flow. Brachial artery (mid): 128 cm/sec, with triphasic flow. Brachial artery (distal): 93 cm/sec, with triphasic flow. Bond-scale imaging description: No stenosis identified. Left upper extremity: Subclavian artery (mid): 92 cm/sec, with triphasic flow. Axillary artery: 113 cm/sec, with biphasic flow. Brachial artery (proximal): 135 cm/sec, with biphasic flow. Brachial artery (mid): 126 cm/sec, with biphasic flow. Brachial artery (distal): 113 cm/sec, with triphasic flow. Bond-scale imaging description: No stenosis identified IMPRESSION: No hemodynamically significant stenosis identified. Dictated by: Karol Perea MD, PhD on 09/27/2016 at 19:32 Approved by: Karol Perea MD, PhD on 09/27/2016 at 19:35
--- NOTE | 2016-09-27 20:22 | PCM.PNMED ---
Subjective Date of Service Sep 27, 2016 Subjective Patient is seen and examined. She is undergoing a B/L arterial u/s. BP are improving, not at goal yet. She has no complaints, wanting to go home Exam Vital Signs Vital Sign - Last Date Time Temp Pulse Resp B/P Pulse Ox O2 Delivery O2 Flow Rate FiO2 09/27/16 08:37 94 140/92 09/27/16 08:35 36.3 19 Room Air Exam General: NAD HEENT: NCAT Heart: RRR, no s3/s4 Lungs: CTA, no crackles or wheezes Abd: Non distended Ext: Trace swelling Psych : neg for anxiety Neuro: No focal deficits IVs and Medications Medications Reviewed: Medications were reviewed in detail Lab and Diagnostics Result Diagram: 09/25/1682209/26/16 0652 Assessment & Plan HTN, active -- Labetalol IV 20 mg Q6H PRN for overnight for SBP>=180 or DBP>=100. Hold if HR <65 and call MD. -- Change Cardizem to 60 mg every 6 hours by mouth 09/26 -- Added Labetalol PO 200 mg BID 09/27 -- Ultrasound echo to check for chronic hypertensive changes such as left ventricular hypertrophy. It was normal -- Arterial duplex was performed due to reported BP difference in L vs R side, result pending --Checked BP in the evening during rounding, 140/90 on R, 145/100 on L Status post 36-week delivery, induced, vaginal , in the setting of severe preeclampsia. -- Stable Morbid Obesity, POA chronic -- Contributing to hypertension. 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
--- NOTE | 2016-09-27 21:24 | PCM.DIOB ---
Obstetrical Disch Instruction Date of Service: Sep 27, 2016 Dates of Hospitalization Date of Hospital Admission Sep 20, 2016 at 12:59 Providers Admitting Physician: Fredis Schumacher MD Primary Care Physician: Nopcp Attending Physician: Fredis Schumacher MD Discharge Diagnosis Discharge Diagnosis Preeclampsia with severe features, delivered Status post normal vaginal delivery Anemia Problems: Diet Discharge Diet: Low fat, Low Sodium Activity Discharge Activity-General: Pelvic Rest for 6 weeks (No sex, douching, or tampon ), Balance rest and activity, No lifting >10 pounds for 4-6 weeks Dressing and Incisional Care Hygiene: May shower, Perineal care, Sitz bath, Dermoplast spray, Witch Dorene pads Follow Up Plan Follow Up Plan Establish care with primary care provider for Hypertension management. Follow up for blood pressure check at Dr. Schumacher office in 2 days. Go to the emergency room if having headache change in vision, abdominal pain or seizures. Measure your blood pressure before taking your blood pressure medication if blood pressure equal or less than 110/60, do not take the medication and call you health care provider for advise. Bring your blood pressure machine to your doctor office to compare measurements o office machine. Follow-up Provider (F9): Fredis Schumacher MD Mid-level Provider (F9): [facility] Follow-up appointment: Days (in 2 days for BP check ) Call your provider for: Fever or Chills, Shortness of breath, Heavy vaginal bleeding, Heavy bleeding, Epigastric pain, Excessive constipation, Vaginal discomfort, Red painful breasts, Other (headache, change in vision, nausea/ vomiting, leg swelling, pain or change in color ) Angela Simon MD Sep 27, 2016 21:24
[2016-09-27] MEDS ORDERED: DILT30TA30 PO (21:29)
[2016-09-27] MEDS ORDERED: LABE200T PO ×2 (21:29→22:08)
[2016-09-27] MEDS ORDERED: HYDR25TA4 PO ×2 (21:29→22:08)
[2016-09-27] MEDS ORDERED: HYDR-3797 PO (21:29)
[2016-09-27] MEDS ORDERED: FERR-83 PO (22:07)
[2016-09-27] MEDS ORDERED: DOCU-41 PO (22:07)
[2016-09-27] MEDS ORDERED: OXYC-474 PO (22:08)
[2016-09-27] MEDS ORDERED: ASCO250T7 PO (22:12)
--- NOTE | 2016-09-27 22:13 | PCM.DC.OB ---
Obstetrical Discharge Summary Date of Service Sep 27, 2016 Date of hospital admission Sep 20, 2016 at 12:59 Date of Discharge: Sep 27, 2016 Providers Admitting Physician: Fredis Schumacher MD Primary Care Physician: [place] Attending Physician: Fredis Schumacher MD Diagnosis at Time of Discharge 1. PPD#6 (S/P 09/21/16) 2. Preeclampsia with sever features 3. Anxiety: 4. Obesity 5. Anemia Problems: Brief History and Physical: 26 Y G1 now P1 * PPD#6 (S/P 09/21/16) was induced for preeclampsia at 36 weeks appropriate recovery. Outcome: female , 2723 g, apgars 8/9. See delivery note for details. Rh positive. Rubella immune. GC/CT negative * Preeclampsia with sever features Asymptomatic Blood pressure management by is greatly appreciated. Blood pressure is better controlled today but one reading of 165/84. On Diltiazem and hydrochlorothiazide. Labetalol was added today and BP became well controlled. Patient feels anxious from long admission and desires to go home. She confirms ability to be compliant with BP check at home (has an automated and manual BP machine, mother is a nurse). ECHO WNL Vascular study for upper extremity WNL with no significant discrepancy Current Medications Diltiazem HCl 60 mg Q6H PO Last administered on 09/27/16 21:02; Admin Dose 60 MG; Start 09/26/16 at 08:30 Hydrochlorothiazide 25 mg DAILY PO Last administered on 09/27/16 08:18; Admin Dose 25 MG; Start 09/26/16 at 08:30 Labetalol HCl 200 mg BID PO Last administered on 09/27/16 18:52; Admin Dose 200 MG; Start 09/27/16 at 20:30 * Anxiety: Hydroxyzine 25 mg PO Q 6 hours. * Obesity * Anemia Discharge Day Exam: Denies headache, change in vision, N/V or epigastric pain Lochia: Normal Gastrointestinal: Good Appetite, No N/V Postop Activity: Ambulate without Assist Labs Laboratory Tests 09/25/16 08:23: White Blood Count 9.0, Red Blood Count 3.67, Hemoglobin 9.9, Hematocrit 31.1, Mean Corpuscular Volume 84.7, Mean Corpuscular Hemoglobin 27.0, Mean Corpuscular Hemoglobin Concent 31.8, Red Cell Distribution Width 15.1, Platelet Count 423, Hematology Comments OB Exam Exam Vital Signs Vital Signs Vital Signs Date Time Temp Pulse Resp B/P Pulse Ox O2 Delivery O2 Flow Rate FiO2 09/27/16 21:31 128/86 09/27/16 21:30 92 136/88 09/27/16 20:31 118/78 09/27/16 20:30 98 122/82 09/27/16 17:02 160/82 09/27/16 17:01 165/84 09/27/16 15:00 90 18 155/84 09/27/16 15:00 90 140/78 09/27/16 11:49 90 19 145/100 09/27/16 11:49 90 150/94 09/27/16 08:37 94 140/92 09/27/16 08:35 36.3 94 19 142/90 Room Air 09/27/16 06:17 150/98 09/27/16 04:57 138/82 09/27/16 02:45 138/78 09/27/16 00:45 146/100 Vital Signs: VS reviewed, concerns are Exam Abdomen: Fundus firm, Abdomen non-tender Extremities: Edema 2+, DTR + 1 B/l , no clonus General: Alert, Oriented X3 CBC Test 09/25/16 08:23 White Blood Count 9.0th/mm3 (3.8-10.1) Red Blood Count 3.67mil/mm3 (3.90-5.20) Hemoglobin 9.9g/dL (12.0-15.6) Hematocrit 31.1% (35.0-46.0) Mean Corpuscular Volume 84.7fL (81-100) Mean Corpuscular Hemoglobin 27.0pg (27.0-35.0) Mean Corpuscular Hemoglobin Concent 31.8% (32.0-37.0) Red Cell Distribution Width 15.1% (12.3-15.4) Platelet Count 423bil/L (150-400) Hematology Comments CMP Test 09/25/16 08:23 09/26/16 06:52 Uric Acid 6.3mg/dL Aspartate Amino Transf (AST/SGOT) 26U/L Alanine Aminotransferase (ALT/SGPT) 32U/L Sodium Level 141mEq/L Potassium Level 4.1mEq/L Chloride Level 102mEq/L Carbon Dioxide Level 21mmol/L Blood Urea Nitrogen 11mg/dL Creatinine 0.76mg/dL Estimat Glomerular Filtration Rate 132mL/min Glucose Level 106mg/dL Calcium Level 9.5mg/dL Hospital Course: Disposition: home. Discharge Condition: stable Diet Discharge Diet: Low fat, Low Sodium Activity Discharge Activity-General: Pelvic Rest for 6 weeks (No sex, douching, or tampon ), Balance rest and activity, No lifting >10 pounds for 4-6 weeks Dressing and Incisional Care Hygiene: May shower, Perineal care, Sitz bath, Dermoplast spray, Witch Dorene pads Follow Up Plan Follow Up Plan Establish care with primary care provider for Hypertension management. Follow up for blood pressure check at Dr. Schumacher office in 2 days. Go to the emergency room if having headache change in vision, abdominal pain or seizures. Measure your blood pressure before taking your blood pressure medication if blood pressure equal or less than 110/60, do not take the medication and call you health care provider for advise. Bring your blood pressure machine to your doctor office to compare measurements o office machine. Follow-up Provider (F9): Fredis Schumacher MD Mid-level Provider (F9): [facility] Follow-up appointment: Days (in 2 days for BP check ) Call your provider for: Fever or Chills, Shortness of breath, Heavy vaginal bleeding, Heavy bleeding, Epigastric pain, Excessive constipation, Vaginal discomfort, Red painful breasts, Other (headache, change in vision, nausea/ vomiting, leg swelling, pain or change in color ) Ascorbic Acid (Vitamin C) 250 Mg Tab.chew 250 MG PO DAILY Prescribed by: DANIKA BENSNO MD Diltiazem (Cardizem) 30 Mg Tablet 60 MG PO Q6H Prescribed by: DANIKA BENSON MD Docusate Sodium (Colace) 100 Mg Capsule 100 MG PO BID Prescribed by: DANIKA BENSON MD Ferrous Sulfate (Ferrous Sulfate) 325 Mg Tablet 325 MG PO DAILY Prescribed by: DANIKA BENSON MD Hydrochlorothiazide (Hydrochlorothiazide) 25 Mg Tablet 25 MG PO DAILY Prescribed by: DANIKA BENSON MD Hydroxyzine Pamoate (HydrOXYzine Pamoate) 25 Mg Capsule 25 MG PO Q6H PRN PRN For Anxiety or Agitation Prescribed by: DANIKA BENSON MD Labetalol (Labetalol) 200 Mg Tablet 200 MG PO BID Prescribed by: DANIKA BENSON MD Oxycodone (Roxicodone) 5 Mg Tablet 5 MG PO Q4H PRN PRN For Pain Prescribed by: MD Aurora LOPEZ Omaima A MD Sep 27, 2016 22:12
== END 2016-09-27 23:07 | disposition home or self-care (01) | DRG 775 ==
LOC: FBCO 08:57 → FBC 12:59
PROVIDERS: ADMIT Obstetrics & Gynecology; ATTEND Obstetrics & Gynecology
PROC: 3E033VJ Introduction of Other Hormone into Peripheral Vein, Percutaneous Approach (ICD-10-PCS; 2016-09-20)
PROC: 10H07YZ Insertion of Other Device into Products of Conception, Via Natural or Artificial Opening (ICD-10-PCS; 2016-09-20)
PROC: 3E033GC Introduction of Other Therapeutic Substance into Peripheral Vein, Percutaneous Approach (ICD-10-PCS; 2016-09-20)
PROC: 10E0XZZ Delivery of Products of Conception, External Approach (ICD-10-PCS; principal; 2016-09-21)
PROC: 0KQM0ZZ Repair Perineum Muscle, Open Approach (ICD-10-PCS; 2016-09-21)
PROC: 10907ZC Drainage of Amniotic Fluid, Therapeutic from Products of Conception, Via Natural or Artificial Opening (ICD-10-PCS; 2016-09-21)
PROC: 3E0D7RZ Introduction of Antiarrhythmic into Mouth and Pharynx, Via Natural or Artificial Opening (ICD-10-PCS; 2016-09-25)
DX: O14.14 Severe pre-eclampsia complicating childbirth (principal); Z68.42 Body mass index [BMI] 45.0-49.9, adult; O13.4 Gestational [pregnancy-induced] hypertension without significant proteinuria, complicating childbirth; O99.214 Obesity complicating childbirth; E66.01 Morbid (severe) obesity due to excess calories; O99.824 Streptococcus B carrier state complicating childbirth; O99.344 Other mental disorders complicating childbirth; F41.9 Anxiety disorder, unspecified; O70.1 Second degree perineal laceration during delivery; O90.81 Anemia of the puerperium; D64.9 Anemia, unspecified; Z37.0 Single live birth; Z3A.36 36 weeks gestation of pregnancy